=== PATIENT | male | born 1970 | race Asian ===

== ENCOUNTER → 2020-06-03 | Outpatient (CLI) | payer OTHER ==
[~2020-06-03] MED LIST: COVID-19 VACC, MRNA(MODERNA)/PF 100 MCG/0.5 ML VIAL IM ONE
== END | disposition home or self-care (01) ==
LOC: VACCPMC 15:11
DX: Z23 Encounter for immunization (principal); Z20.828 Contact with and (suspected) exposure to other viral communicable diseases

== ENCOUNTER → 2020-07-14 | Outpatient (CLI) | payer OTHER | END | DRG 951 | LOC: VACCPMC 10:45 | DX: Z23 Encounter for immunization (principal); Z20.822 Contact with and (suspected) exposure to COVID-19 | CPT/HCPCS: 0012A; 91301 ==